=== PATIENT | female | born 1985 | race Two or more races ===

== ENCOUNTER 2021-11-05 20:41 | Emergency (ER) | payer OTHER ==
[2021-11-05 21:05] VITALS: BP 135/90; PULSE 69; TEMP 98.4; BMI 32.3
[2021-11-06 02:03] LABS: BASO % 0.9 % (0-2.0); EOS % 2.7 % (0-4.5); HEMATOCRIT 43.2 % (32.4-45.2); HEMOGLOBIN 14.3 GM/dL (10.7-15.3); LYMPH % 34.6 % (8-40); MCH 27.6 pg (25.7-33.7); MCHC 33.2 g/dl (32.0-36.0); MEAN CELL VOLUME 83.1 fl (80-96); MEAN PLT VOLUME 9.1 fl (7.5-11.1); MONO % 7.8 % (3.8-10.2); PLATELET COUNT 300 10^3/uL (134-434); RDW 14.1 % (11.6-15.6); WHITE BLOOD COUNT 7.9 K/mm3 (4.0-10.0)
[2021-11-06 02:05] LABS: HCG,QUALITATIVE URINE Negative
[2021-11-06 02:13] LABS: EPI CELLS 6 /uL (0-25.1); HYALINE CASTS 0 /uL (0-3.1); PH,URINE 5.5 (5.0-8.0); URINE APPEARANCE CLEAR; URINE BACTERIA 18 /uL (0-1359); URINE BILIRUBIN NEGATIVE (NEGATIVE); URINE COLOR YELLOW; URINE GLUCOSE (UA) NEGATIVE (NEGATIVE); URINE KETONE NEGATIVE (NEGATIVE); URINE LEUK ESTERASE NEGATIVE (NEGATIVE); URINE NITRITE NEGATIVE (NEGATIVE); URINE PROTEIN NEGATIVE (NEGATIVE); URINE RBC 358 /uL (0-23.9); URINE UROBILINOGEN 0.2 mg/dL (0.2-1.0); URINE WBC 3 /uL (0-25.8)
[2021-11-06 02:28] LABS: ALBUMIN 3.8 g/dl (3.4-5.0); BLOOD UREA NITROGEN 10.3 mg/dL (7-18)
[2021-11-06 02:31] LABS: CREATININE 0.9 mg/dL (0.55-1.3)
[2021-11-06 02:33] LABS: BILIRUBIN,TOTAL 0.5 mg/dL (0.2-1)
== END 2021-11-06 02:59 | disposition home or self-care (01) ==
LOC: JER 20:41
DX: D25.9 Leiomyoma of uterus, unspecified (principal)
CPT/HCPCS: 36415; 76830-TC; 80053; 81003; 84703; 85025; 86850; 86900; 86901; 87086; 99284-25

== ENCOUNTER 2023-12-26 08:34 | Emergency (ER) | payer OTHER ==
[2023-12-26 08:41] VITALS: BP 120/85; PULSE 73; RESP 18; TEMP 98.3; BMI 34.7
[2023-12-26] MEDS ORDERED: ACETAMINOPHEN 500 MG TABLET (FP) ONE (09:48)
[2023-12-26] MEDS ORDERED: LIDOCAINE 4% PATCH TP ONE (09:48)
[2023-12-26] MEDS: LIDOCAINE 4% PATCH TP ONE (09:49)
[2023-12-26] MEDS: ACETAMINOPHEN 500 MG TABLET (FP) PO ONE (09:49)
[2023-12-26] MEDS ORDERED: LIDOCAINE PATCH REMOVAL MC ONE (22:00)
== END 2023-12-26 10:37 | disposition home or self-care (01) ==
LOC: JERFT 08:34
DX: N63.10 Unspecified lump in the right breast, unspecified quadrant (principal)
CPT/HCPCS: 76642-TC-RT; 99284-25

== ENCOUNTER 2023-12-30 18:17 | Emergency (ER) | payer OTHER ==
[2023-12-30 18:28] VITALS: BP 123/79; PULSE 62; RESP 18; TEMP 97.7; BMI 34.2
[2023-12-30 20:46] LABS: BASO % 0.7 % (0-2.0); EOS % 4.7 % (0-4.5); HEMATOCRIT 44.2 % (32.4-45.2); HEMOGLOBIN 14.2 GM/dL (10.7-15.3); LYMPH % 31.7 % (8-40); MCHC 32.3 g/dl (32.0-36.0); MEAN CELL VOLUME 83.6 fl (80-96); MEAN PLT VOLUME 8.4 fl (7.5-11.1); MONO % 8.4 % (3.8-10.2); NEUT % 54.5 % (42.8-82.8); PLATELET COUNT 309 10^3/uL (134-434); RBC 5.28 M/mm3 (3.60-5.2); RDW 14.6 % (11.6-15.6); WHITE BLOOD COUNT 9.1 K/mm3 (4.0-10.0)
[2023-12-30 21:21] LABS: POTASSIUM 4.2 mmol/L (3.5-5.1)
[2023-12-30 21:22] LABS: CALCIUM 9.2 mg/dL (8.5-10.1)
[2023-12-30 21:23] LABS: ALBUMIN 3.6 g/dl (3.4-5.0); BLOOD UREA NITROGEN 9.9 mg/dL (7-18)
[2023-12-30 21:26] LABS: CREATININE 0.7 mg/dL (0.55-1.3)
[2023-12-30 21:28] LABS: BILIRUBIN,TOTAL 0.2 mg/dL (0.2-1); TOT PROT 7.4 g/dl (6.4-8.2)
== END 2023-12-30 20:53 | disposition home or self-care (01) ==
LOC: JERFT 18:17 → JER 18:17 → JERFT 20:53
PROC: 0H9T3ZZ Drainage of Right Breast, Percutaneous Approach (ICD-10-PCS; principal; 2023-12-30)
DX: N61.1 Abscess of the breast and nipple (principal)
CPT/HCPCS: 36415; 80053; 85025; 99283-25

== ENCOUNTER 2024-01-01 18:34 | Emergency (ER) | payer OTHER ==
[2024-01-01 18:50] VITALS: BP 107/75; PULSE 85; RESP 18; TEMP 98.8; BMI 33.7
== END 2024-01-01 22:19 | disposition home or self-care (01) ==
LOC: JERFT 18:34
DX: N61.1 Abscess of the breast and nipple (principal)
CPT/HCPCS: 76642-TC-RT; 99284-25

== ENCOUNTER 2024-02-19 04:46 | Day surgery (SDC) | payer OTHER ==
[2024-02-17 13:08] VITALS: BMI 33.9
[~2024-02-19 04:46] MED LIST: LACTATED RINGERS SOLUTION 1,000 ML IV SCH; ONDANSETRON 4 MG/2 ML VIAL IVPUSH PRN; PROMETHAZINE HCL 25 MG/1 ML VIAL IVPB PRN; oxyCODONE HCL 5 MG TABLET PO PRN
[2024-02-19] MEDS ORDERED: PROPOFOL 20 ML ONE (10:24)
[2024-02-19] MEDS ORDERED: MIDAZOLAM HCL 2 MG/2 ML SINGLE DOSE VIAL ONE (10:24)
[2024-02-19] MEDS ORDERED: DEXMEDETOMIDINE HCL 200 MCG/2 ML IVPB ONE (10:28)
[2024-02-19] MEDS ORDERED: LIDOCAINE HCL 1%, 10 MG/ML (20ML VIAL) ONE (10:31)
[2024-02-19] MEDS ORDERED: BUPIVACAINE HCL/PF 0.5% (5MG/ML) 10 ML VIAL ONE (10:31)
[2024-02-19] MEDS ORDERED: ONDANSETRON 4 MG/2 ML VIAL ONE (10:41)
[2024-02-19] MEDS ORDERED: ceFAZolin SODIUM 1 GM VIAL ONE (10:55)
[2024-02-19] MEDS: ceFAZolin SODIUM 1 GM VIAL IVPB ONE (11:01)
[2024-02-19] MEDS: LIDOCAINE HCL 1%, 10 MG/ML (20ML VIAL) INF ONE (11:24)
[2024-02-19] MEDS: BUPIVACAINE HCL/PF 0.5% (5 MG/ML) 30 ML VIAL IJ ONE (11:24)
[2024-02-19] MEDS ORDERED: SEVOFLURANE 250 ML BTL ONE (11:25)
[2024-02-19 12:13] VITALS: RESP 16
[2024-02-19 13:06] VITALS: TEMP 97.1
[2024-02-19 13:50] VITALS: BP 115/85; PULSE 70
== END 2024-02-19 13:45 | disposition home or self-care (01) ==
LOC: JASU-SURG 04:46
PROVIDERS: ATTEND Surgery
PROC: 0HB5XZZ Excision of Chest Skin, External Approach (ICD-10-PCS; principal; 2024-02-19 10:30)
DX: L72.3 Sebaceous cyst (principal)
CPT/HCPCS: 81025; 88304-TC; 94760